=== PATIENT | female | born 1945 | race Caucasian/White ===

== ENCOUNTER → 2024-04-15 | Day surgery (SDC) | payer MEDICARE, OTHER ==
[~2024-04-15] MED LIST: Iohexol 300 - 10 ML VIAL MC ONE; methylPREDNISolone acetate 80 MG/ML VIAL IJ ONE
== END ==
LOC: WKSPAIN 10:07
DX: G89.29 Other chronic pain (principal); M46.1 Sacroiliitis, not elsewhere classified; M53.3 Sacrococcygeal disorders, not elsewhere classified; M41.86 Other forms of scoliosis, lumbar region; M47.816 Spondylosis without myelopathy or radiculopathy, lumbar region